=== PATIENT | female | born 1970 | race Caucasian/White ===

== ENCOUNTER 2020-08-18 06:48 | Outpatient (NON) | payer OTHER, SELFPAY ==
[2020-08-18 17:45] LABS: SARS-CoV-2 RNA PCR Negative
== END 2020-08-18 06:49 ==
LOC: ANHCOVIDDT 06:48
PROVIDERS: Visit Provider Student in an Organized Health Care Education/Training Program
DX: Z20.828 Contact with and (suspected) exposure to other viral communicable diseases (principal); R05 Cough; R09.81 Nasal congestion
CPT/HCPCS: 87635; C9803; U0003

== ENCOUNTER → 2020-10-16 13:27 | Outpatient (CLI) | payer OTHER, SELFPAY ==
--- NOTE | ~2020-10-16 | MM_ITS ---
EXAMINATION: MM screening [facility] BI w rhona HISTORY: Screening mammogram TECHNIQUE: Craniocaudal and mediolateral oblique 3-D tomosynthesis images were obtained and synthetic 2-D images were generated. CAD analysis was submitted and interpreted. COMPARISON: 05/18/2019 bilateral digital screening mammogram 12/16/2017 diagnostic right digital mammogram and limited right breast ultrasound 12/03/2017 bilateral digital screening mammogram BREAST PARENCHYMAL COMPOSITION: The breasts are heterogeneously dense, which may obscure small masses . FINDINGS: Stable benign circumscribed small intramammary lymph node is again noted on the right. There is suggestion of architectural distortion in the anterior mid to upper outer right breast. Diag nostic right mammogram and right breast ultrasound examination are recommended. No suspicious mass, architectural distortion, malignant calcification, skin thickening or retraction of either breast is noted otherwise. IMPRESSION: 1. Possible architectural distortion in anterior mid to upper outer right breast 2. Diagnostic right mammogram and right breast ultrasound examination are recommended. BI-RADS Category 0: Incomplete: Needs additional imaging evaluation. Reviewed, dictated and finalized at location A. EMS DEVELOPER IMPRESSION: 1. Possible architectural distortion in anterior mid to upper outer right breas t 2. Diagnostic right mammogram and right breast ultrasound examination are recom mended. BI-RADS Category 0: Incomplete: Needs additional imaging evaluation.
== END ==
PROVIDERS: Visit Provider Obstetrics & Gynecology
DX: Z12.31 Encounter for screening mammogram for malignant neoplasm of breast (principal); R92.8 Other abnormal and inconclusive findings on diagnostic imaging of breast
CPT/HCPCS: 77063; 77067

== ENCOUNTER → 2020-11-14 09:43 | Outpatient (CLI) | payer OTHER, SELFPAY ==
--- NOTE | ~2020-11-14 | MMUS_ITS ---
EXAMINATION: MM diagnostic mammo unilat RT, US breast RT complete HISTORY: Possible architectural distortion reported on 10/16/2020 right screening mammogram TECHNIQUE: Additional 3-D tomosynthesis images of the right breast were performed and synthetic 2-D i mages were generated. CAD analysis was submitted and interpreted. High resolution complete right [address] st ultrasound was performed. COMPARISON: 10/16/2020 bilateral digital screening mammogram 05/18/2019 bilateral digital screening mammogram 12/16/2017 diagnostic right digital mammogram and limited right breast ultrasound bilateral digital screening mammogram BREAST PARENCHYMAL COMPOSITION: The breasts are heterogeneously dense, which may obscure small masses . FINDINGS: MAMMOGRAPHIC FINDINGS: A circumscribed approximately 5 mm opacity is again noted in the posterior aspect of the upper outer quadrant of the right breast, likely a benign intramammary lymph node, stable since 12/03/2017. No suspicious mass or architectural distortion, malignant calcification, skin thickening or retractio n of the right breast is noted otherwise. ULTRASOUND: Benign-appearing circumscribed mammogram with fatty hilus is noted at 10:00 7 cm from nipple, measuri ng 5.3 x 6.2 x 5.5 mm. There is uniform homogeneous echotexture and thickness of the lymph node collette x. There is normal vascularity. There is no suspicious shadowing. This is not significantly changed s sonia 12/16/2017. No suspicious mass or shadowing is noted. IMPRESSION: 1. No mammographic evidence of malignancy 2. Routine mammographic screening is recommended BI-RADS Category 2: Benign finding(s). Reviewed, dictated and finalized at location A. RAPHIC INFORMATION SYSTEMS MANAGER IMPRESSION: 1. No mammographic evidence of malignancy 2. Routine mammographic screening is recommended BI-RADS Category 2: Benign finding(s).
== END ==
PROVIDERS: Visit Provider Obstetrics & Gynecology
DX: R92.8 Other abnormal and inconclusive findings on diagnostic imaging of breast (principal)
CPT/HCPCS: 76641; 77065

== ENCOUNTER → 2022-12-12 10:50 | Outpatient (CLI) | payer OTHER, SELFPAY ==
--- NOTE | ~2022-12-12 | MM_ITS ---
EXAMINATION: MM screening [facility] BI w rhona HISTORY: Screening mammogram TECHNIQUE: Craniocaudal and mediolateral oblique 3-D tomosynthesis images were obtained and synthetic 2-D images were generated. CAD analysis was submitted and interpreted. COMPARISON: 11/14/2020 right diagnostic mammogram and complete right breast ultrasound 10/16/2020, 05/18/2019 screening mammogram examinations BREAST PARENCHYMAL COMPOSITION: The breasts are heterogeneously dense, which may obscure small masses . FINDINGS: There are bilateral mammographic asymmetries. Bilateral diagnostic mammography and breast ultrasound examination are recommended IMPRESSION: 1. Bilateral mammographic asymmetries 2. Bilateral diagnostic mammography and breast ultrasound examination are recommended BI-RADS Category 0: Incomplete: Needs additional imaging evaluation. Reviewed, dictated and finalized at location A. STRIAL ENGINEERING INTERN IMPRESSION: 1. Bilateral mammographic asymmetries 2. Bilateral diagnostic mammography and breast ultrasound examination are recom mended BI-RADS Category 0: Incomplete: Needs additional imaging evaluation.
== END ==
PROVIDERS: PCP Student in an Organized Health Care Education/Training Program; Visit Provider Obstetrics & Gynecology
DX: Z12.31 Encounter for screening mammogram for malignant neoplasm of breast (principal); R92.8 Other abnormal and inconclusive findings on diagnostic imaging of breast
CPT/HCPCS: 77063; 77067

== ENCOUNTER 2024-04-30 13:30 | Outpatient (CLI) | payer OTHER, SELFPAY ==
--- NOTE | ~2024-04-30 | MM_ITS ---
EXAMINATION: MM screening [facility] BI w rhona HISTORY: Screening mammogram TECHNIQUE: Craniocaudal and mediolateral oblique 3-D tomosynthesis images were obtained and synthetic 2-D images were generated. CAD analysis was submitted and interpreted. COMPARISON: 12/12/2022, 11/14/2020, 10/16/2020 BREAST PARENCHYMAL COMPOSITION:Not Dense. There are scattered areas of fibroglandular density. FINDINGS: No suspicious mass, calcification, or architectural distortion are identified in either yenifer ast to suggest malignancy. There has been no suspicious interval change. IMPRESSION: No mammographic evidence of malignancy. Recommend routine screening mammography in one year. BI-RADS Category 1: Negative Reviewed, dictated and finalized at location .
== END 2024-04-30 13:31 ==
PROVIDERS: PCP Nurse Practitioner Obstetrics & Gynecology; Visit Provider Nurse Practitioner Obstetrics & Gynecology
DX: Z12.31 Encounter for screening mammogram for malignant neoplasm of breast (principal)
CPT/HCPCS: 77063; 77067

== ENCOUNTER 2025-08-10 10:31 | Outpatient (CLI) | payer OTHER, SELFPAY ==
--- NOTE | ~2025-08-10 | MM_ITS ---
EXAMINATION: MM screening [facility] w rhona HISTORY: Screening TECHNIQUE: Craniocaudal and mediolateral oblique 3-D tomosynthesis images were obtained and synthetic 2-D images were generated. CAD analysis was submitted and interpreted. COMPARISON: 12/12/2022 BREAST PARENCHYMAL COMPOSITION: There are scattered areas of fibroglandular density. FINDINGS: There is no evidence of suspicious mass, calcification, or architectural distortion to suggest malignancy. There has been no suspicious interval change. IMPRESSION: 1. No mammographic evidence of malignancy. Recommend routine screening mammography in one year. BI-RADS Category 2: Benign finding(s) Reviewed, dictated and finalized at location Q. IMPRESSION: 1. No mammographic evidence of malignancy. Recommend routine screening mammogra phy in one year. BI-RADS Category 2: Benign finding(s)
== END 2025-08-10 10:32 | disposition home or self-care (01) ==
PROVIDERS: PCP Student in an Organized Health Care Education/Training Program; Visit Provider Student in an Organized Health Care Education/Training Program
DX: Z12.31 Encounter for screening mammogram for malignant neoplasm of breast (principal)
CPT/HCPCS: 77063; 77067